=== PATIENT | male | born 1945 | race Caucasian/White ===

== ENCOUNTER → 2020-08-26 03:27 | Outpatient (CLI) | payer MEDICARE, OTHER, SELFPAY ==
[2020-08-26 19:50] LABS: SARS-CoV-2 RNA PCR Negative
== END ==
PROVIDERS: PCP Internal Medicine; Visit Provider Internal Medicine Gastroenterology
DX: Z01.812 Encounter for preprocedural laboratory examination (principal); Z20.822 Contact with and (suspected) exposure to COVID-19
CPT/HCPCS: C9803; U0003; U0005

== ENCOUNTER 2020-08-29 01:26 | Day surgery (SDC) | payer MEDICARE, OTHER, SELFPAY ==
[2020-08-18 09:55] VITALS: BMI 31.1
[2020-08-29 07:47] VITALS: BP 134/72; PULSE 58; RESP 18; TEMP 36.4; O2SAT 96; BMI 30.7
[2020-08-29] MEDS: LACTATED RINGERS 1,000 ML 150 ML IV CONT (08:01)
--- NOTE | 2020-08-29 08:01 | WPDANESEPPF ---
Anes - Initial Pre Proc Eval Procedure: Operation Date: 08/29/20 09:00 Proposed Procedures p Screening Colonoscopy - Van Pina MD Date/Time: 08/29/20 08:01 Surgeon: Van Pina MD Pre Op Diagnosis: hx of colon polyps Patient Data Age: 75 Gender: M Height: 1.7 m Weight: 88.8 kg Allergies Allergy/AdvReac Type Severity Reaction Status Date / Time Penicillins Allergy Unknown hives Verified 08/29/20 07:47 Home Medications Medication Instructions Recorded Confirmed Type sodium,potassium,mag sulfates 17.5 See Rx Instructions PO .COMPLEX 08/17/20 08/18/20 Rx gram-3.13 gram-1.6 gram oral soln #354 ml amlodipine 10 mg PO DAILY 08/18/20 08/18/20 History atorvastatin 40 mg PO DAILY 08/18/20 08/18/20 History lisinopril 20 mg PO DAILY 08/18/20 08/18/20 History metoprolol succinate 50 mg PO DAILY 08/18/20 08/18/20 History Patient hx anesthesia problems: none Family hx anesthesia problems: none [facility] Past Medical History Medical History (Updated 08/29/20 @ 08:02 by He Mckeon DO) GERD (gastroesophageal reflux disease) Hyperlipidemia Hypertension Surgical History Surgical History (Updated 08/29/20 @ 08:02 by He Mckeon DO) Hx of CABG 2009 Family History Family History (Updated 01/10/16 @ 11:16 by DOCTOR UNKNOWN) Mother Family history of cardiovascular disease Other Hypertension Social History Social History Smoking status: Never smoker Alcohol intake: current Substance use: never Substance use type: does not use Living arrangements: with family Spiritual care concerns: No Anes - Eval Final PreProcedure Day of Procedure 08/29/20 08:01 Patient weight: obese Heart: regular rate and rhythm Lungs: clear to auscultation and normal air movement Airway: Mallampati scale class III Neurological: alert and oriented Last oral intake: >/= 8 hours ASA classification: III Emergent: no Anesthetic plan: proceed Anesthesia type and monitoring: general GIVS and standard monitoring Informed Consent: The patient's anesthetic plan and its attendant risks and benefits were discussed with the patient/family/POA. Questions were solicited and answers provided to the satisfaction of the patient/family/POA.
--- NOTE | 2020-08-29 08:30 | WPDGICN ---
Assessment and Plan Assessment and plan (1) History of colon polyps: Code(s): Z86.010 - Personal history of colonic polyps Status: Acute Assessment and Plan: Patient has a history of adenomatous colon polyp for this reason presents today for screening colonoscopy. Follow-up at 5 years intervals has been advised. GI Consult Note Consult date/time: 08/29/20 08:30 HPI: Kalen Clancy is a 75 year old male Presents for screening colonoscopy. Patient has a history of adenomatous colon polyp removed from the colon 2013. Patient denies abdominal pain. Patient has had no bleeding. He has become somewhat forgetful and his comes with him and answers questions to remind. Patient denies abdominal pain has had no bleeding. Family history noncontributory. Review of Systems Review of Systems: All systems reviewed & are unremarkable except as noted in HPI and below PMFSH Past Medical History Medical History (Updated 08/29/20 @ 08:31 by Van Pina MD) GERD (gastroesophageal reflux disease) Hyperlipidemia Hypertension Surgical History Surgical History (Updated 08/29/20 @ 08:02 by He Mckeon DO) Hx of CABG 2008 Family History Family History (Updated 01/10/16 @ 11:16 by DOCTOR UNKNOWN) Mother Family history of cardiovascular disease Other Hypertension Social History Social History Smoking status: Never smoker Alcohol intake: current Substance use: never Substance use type: does not use Living arrangements: with family Spiritual care concerns: No Meds Home Medications and Allergies Home Medications Medication Instructions Recorded Confirmed Type sodium,potassium,mag sulfates 17.5 See Rx Instructions PO .COMPLEX 08/17/20 08/18/20 Rx gram-3.13 gram-1.6 gram oral soln #354 ml amlodipine 10 mg PO DAILY 08/18/20 08/18/20 History atorvastatin 40 mg PO DAILY 08/18/20 08/18/20 History lisinopril 20 mg PO DAILY 08/18/20 08/18/20 History metoprolol succinate 50 mg PO DAILY 08/18/20 08/18/20 History Allergies Allergy/AdvReac Type Severity Reaction Status Date / Time Penicillins Allergy Unknown hives Verified 08/29/20 07:47 Vital Signs Vital Signs - 24 hr 08/29/20 07:47 Temperature 97.6 F Pulse Rate 58 L Respiratory Rate 18 Blood Pressure 134/72 Pulse Oximetry 96 Exam Narrative: Exam Narrative: Physical exam reveals patient be alert. Vital signs stable. HEENT exam is unremarkable. Patient is anicteric. Lungs are clear to auscultation and percussion. Heart is without murmur or extra sounds. Abdominal exam bowel sounds are present soft nontender with no organomegaly. Digital external rectal exam normal.
[2020-08-29] MEDS: SIMETHICONE ORAL SUSPENSION 20 MG/0.3 ML 30 ML BOTTLE 0.6 ML IRRIGATION (09:04)
[2020-08-29 09:17] VITALS: BP 114/54; PULSE 50; RESP 16; O2SAT 98
[2020-08-29 09:27] VITALS: BP 115/53; PULSE 48; RESP 18; O2SAT 99
[2020-08-29 09:37] VITALS: BP 123/67; PULSE 52; RESP 20; O2SAT 100
== END 2020-08-29 09:55 | disposition home or self-care (01) ==
PROVIDERS: PCP Internal Medicine; Visit Provider Internal Medicine Gastroenterology
PROC: 0DJD8ZZ Inspection of Lower Intestinal Tract, Via Natural or Artificial Opening Endoscopic (ICD-10-PCS; CPT 45378; principal; 2020-08-29 09:00)
DX: Z12.11 Encounter for screening for malignant neoplasm of colon (principal); Z86.010 Personal history of colon polyps; K64.8 Other hemorrhoids; K63.5 Polyp of colon; D12.8 Benign neoplasm of rectum; D12.2 Benign neoplasm of ascending colon; K21.9 Gastro-esophageal reflux disease without esophagitis; I10 Essential (primary) hypertension; E78.5 Hyperlipidemia, unspecified; E66.9 Obesity, unspecified; Z68.30 Body mass index [BMI] 30.0-30.9, adult; Z95.1 Presence of aortocoronary bypass graft
CPT/HCPCS: 45385; 88305; J2704; J7120

== ENCOUNTER 2023-04-03 14:40 | Outpatient (CLI) | payer MEDICARE, SELFPAY ==
--- NOTE | ~2023-04-03 | XR_ITS ---
EXAMINATION: XR knee LT min 4V DATE: 04/03/2023 14:53 INDICATION: Left knee pain and swelling. TECHNIQUE: 4 views of left knee including standing views were obtained. COMPARISON: None. FINDINGS: Bone alignment is normal. No fracture. There is moderate osteoarthritis of medial compartme nt and mild osteoarthritis of lateral and patellofemoral compartments. There is a moderate-sized knee joint effusion. There is superficial infrapatellar soft tissue swelling. IMPRESSION: 1. Moderate left knee osteoarthritis. 2. Moderate-sized left knee joint effusion. Reviewed, dictated and finalized at location E. RAIL OPERATOR
== END 2023-04-03 14:41 | disposition home or self-care (01) ==
PROVIDERS: PCP Nurse Practitioner Adult Health; Visit Provider Nurse Practitioner Adult Health
DX: Z78.9 Other specified health status (principal); M17.12 Unilateral primary osteoarthritis, left knee; M25.462 Effusion, left knee
CPT/HCPCS: 73564

== ENCOUNTER 2023-05-29 12:58 | Outpatient (CLI) | payer MEDICARE, SELFPAY ==
--- NOTE | 2023-05-29 13:10 | ECG_ITS ---
Measurements Intervals [place] Rate: 60 P: 14 WA: 161 QRS: -34 QRSD: 117 T: 0 QT: 436 QTc: 436 Interpretive Statements SINUS RHYTHM LEFT AXIS DEVIATION INTRAVENTRICULAR CONDUCTION DELAY LEFT VENTRICULAR HYPERTROPHY AND ST-T CHANGE POOR R WAVE PROGRESSION, ANTERIOR LEADS BORDERLINE T WAVE ABNORMALITY- INFERIOR LEADS BASELINE ARTIFACT- I, II, AVR BORDERLINE ECG NO PREVIOUS ECG AVAILABLE FOR COMPARISON Electronically Signed On 05-29-2023 13:50:43 CDT by Jared Pride D.O.
== END 2023-05-29 12:59 | disposition home or self-care (01) ==
LOC: ANHSURGERY 13:05
PROVIDERS: PCP Nurse Practitioner Adult Health; Visit Provider Urology
DX: I10 Essential (primary) hypertension (principal); Z01.818 Encounter for other preprocedural examination
CPT/HCPCS: 93005

== ENCOUNTER 2023-06-04 01:13 | Day surgery (SDC) | payer MEDICARE, SELFPAY ==
--- NOTE | 2023-05-27 09:34 | PC.NURSE ---
Report to the Outpatient Waiting Room, entrance under the green pavilion located off [facility], at time _0630 on date _06/04/23 . Planned Procedure Time: ___829 . Time changes happen often and if your time is changed the preop area will call you the afternoon before. - You and your visitor will be asked to self-screen and do not enter if you have any COVID symptoms. - A mask is optional within the hospital at this time. Patients may have clear liquids (water, carbonated beverages, clear teas, apple juice) until 3 hours prior to surgery ( 5:30 am)with a maximum of 20 ounces. - No food from midnight until time of surgery - Infants may have breast milk until 4 hours before surgery, formula 6 hours prior to surgery. - Children will be allowed to drink immediately following surgery. If applicable, please bring a bottle or sippy cup to assist with drinking. Juice, water, soda, and popsicles are readily available. For infants on formula, please bring formula the day of surgery. Pacifiers are allowed. Take the following medications with a SIP of water the morning of surgery: _AMLODIPINE , METOPROLOL DO NOT STOP ANY OF YOUR OTHER PRESCRIPTION MEDICATIONS PRIOR TO SURGERY ?EXCEPT THE FOLLOWING Medications to discontinue per physician ___PT STATES HOLD ASPIRIN 7 DAYS PRE OP PER DR HURTADO LAST DOSE 05/27/23. HOLD ALL VITAMINS AND SUPPLEMENTS 3 DAYS PRE OP.LAST DOSE 05/31/23 Please no make-up, nail latvian, hairspray, perfume, deodorant, or body powder the day of surgery. No jewelry (including any body piercings) or valuables the day of surgery, leave them at home. Please take a shower or bath the night before, or the morning of, surgery with an antibacterial soap. Wear comfortable, loose fitting clothing. Children are encouraged to wear pajamas. - Jewelry must be removed prior to entering the operating room. Rings and piercings that are not removed may be cut off. - The hospital will not accept responsibility for valuables. - Please leave all valuables, including medications, at home the day of surgery. If you are going home after surgery, a licensed front end driver must drive you home. - NO public transportation without another adult if you receive anesthesia. - We recommend that an adult stay with you for 24 hours following discharge. - We also recommend that you do not drive, make important decision, drink alcoholic beverages, or take any drugs that were not prescribed by your health care provider for at least 24 hours after your discharge time. Follow any additional instructions given to you from your surgeon. If you or anyone in your household have experienced Covid symptoms in the past week, please notify your surgeon or the nurse liaison at the phone number below for possible testing. Telephone instructions given to ____PATIENT and asked if any additional questions and then verbalized understanding. Patient advised to call surgeon office or pre surgery nurse liaison [phone] if any additional questions.
[2023-05-27 09:47] VITALS: BMI 29.9
[2023-06-04] VITALS (9 sets, daily range): BP systolic 132–169; BP diastolic 60–91; PULSE 49–60; RESP 12–24; TEMP 36.1–36.7; O2SAT 97–99; BMI 30.4
[2023-06-04] MEDS: LACTATED RINGERS 1,000 ML 30 ML IV CONT (07:30)
--- NOTE | 2023-06-04 07:35 | WPDHPUPDATE1 ---
History and Physical Update Update Date/Time: 06/04/23 07:35 History and Physical has been reviewed, including an updated exam of the patient. There are NO changes in the patient's condition. Risks, benefits, and alternatives have been discussed and questions answered. Patient agrees to proceed with procedure.
--- NOTE | 2023-06-04 08:21 | WPDANESEPPF ---
Anes - Initial Pre Proc Eval Procedure: Operation Date: 06/04/23 08:30 Proposed Procedures p Circumcision - Mickey Borges MD Date/Time: 06/04/23 08:21 Surgeon: Mickey Borges MD Pre Op Diagnosis: Phimosis Patient Data Age: 78 Gender: M Height: 1.7 m Weight: 86.65 kg Allergies Allergy/AdvReac Type Severity Reaction Status Date / Time Sulfa (Sulfonamide Allergy Severe Itching Verified 05/27/23 09:18 Antibiotics) Penicillins Allergy Unknown hives Verified 05/27/23 09:18 Home Medications Medication Instructions Recorded Confirmed Type amlodipine 10 mg tablet 10 mg PO DAILY 08/18/20 05/27/23 History atorvastatin 40 mg tablet 40 mg PO EVERY OTHER DAY 08/18/20 05/27/23 History lisinopril 20 mg tablet 20 mg PO DAILY 08/18/20 05/27/23 History metoprolol succinate 50 mg 50 mg PO DAILY 08/18/20 05/27/23 History tablet,extended release 24 hr antiarthritic combination no.2 900 900 mg PO DAILY 04/18/23 05/27/23 History mg tablet (glucosamine-chondroitin) aspirin 81 mg tablet,delayed 81 mg PO DAILY 04/18/23 05/27/23 History release (Adult Low Dose Aspirin) krill oil 500 mg capsule 500 mg PO DAILY 04/18/23 05/27/23 History red yeast rice 600 mg capsule 600 mg PO EVERY OTHER DAY 04/18/23 05/27/23 History turmeric root extract 500 mg 500 mg PO DAILY 04/18/23 05/27/23 History capsule coQ10 (ubiquinol) 100 mg capsule 100 mg PO DAILY 05/27/23 05/27/23 History cyanocobalamin (vitamin B-12) 1,000 mcg PO DAILY 05/27/23 05/27/23 History 1,000 mcg tablet fluconazole 150 mg tablet 150 mg PO DAILY #1 tablet 05/27/23 Rx omeprazole magnesium 20 mg 10 mg PO DAILY 05/27/23 05/27/23 History tablet,delayed release (Prilosec OTC) Patient hx anesthesia problems: none Family hx anesthesia problems: none Results Review: All pre-operative results and documents have been reviewed as part of the pre-operative evaluation. PMFSH Past Medical History Medical History GERD (gastroesophageal reflux disease) Hyperlipidemia Hypertension Surgical History Surgical History History of carpal tunnel release of both wrists History of foot surgery Hx of CABG 2009 Family History Family History Mother Family history of cardiovascular disease Other Hypertension Malignant neoplasm of prostate Social History Social History Smoking status: Never smoker Alcohol intake: current Alcohol use details: rarely Substance use: never Substance use type: does not use Do You Feel Safe in your Home?: Yes Lack of Transportation: No Lack of Food: Never True Current Housing: Decline to Answer Concerned About Future Housing: Decline to Answer Difficulty Paying Gas/Electric Bills: No Difficulty Paying for Meds: No Currently Unemployed: YES Education: Trade/Vocational Certificate Difficulty w/ Childcare or Family Care: No Living arrangements: with family Occupation/Education: occupation Additional occupation/education comments: [employer] Gender identity (if verbalized by the patient): Male Spiritual care concerns: No Anes - Eval Final PreProcedure Day of Procedure 06/04/23 08:21 Patient weight: normal Heart: regular rate and rhythm Lungs: clear to auscultation Airway: Mallampati scale class II Neurological: alert and oriented Last oral intake: >/= 8 hours ASA classification: III Emergent: no Anesthetic plan: proceed Anesthesia type and monitoring: general LMA and standard monitoring Results Review: All pre-operative results and documents have been reviewed as part of the pre-operative evaluation. Informed Consent: The patient's anesthetic plan and its attendant risks and benefits were discussed w
[2023-06-04] MEDS: ceFAZolin 2 GM/D5W 50 ML 2 GM/50 ML BAG IVPB (08:55)
[2023-06-04] MEDS: BUPivacaine HCL 0.5% 10 ML AMP 20 ML INFILTRATE (09:00)
--- NOTE | 2023-06-04 09:25 | W.PM.PROC2 ---
Procedure Note - Detailed Date of Procedure 06/04/23 Pre-op Diagnosis Phimosis Post-op Diagnosis Same Procedure Performed circumcision Surgeon Mickey Borges MD Anesthesia General Description of Procedure The patient is brought to the operative suite areas prepped and draped in a routine sterile fashion while in a supine position. The lines of circumcision are outlined using a sterile marking pen. 2 circumferential circumcising incisions were made and carried down to Colle's fascia. The penile foreskin is circumferentially excised. Hemostasis is obtained with electric cautery. The edges of the penile skin reapproximated using a combination of running and interrupted 3-0 chromic. A penile block is administered at the base of the penis with 0.25% bupivacaine. The patient was taken to the recovery room in good condition. EBL was approximately 10cc. Drains No Packing No Pathology Yes Complications No immediate complications Condition Stable
== END 2023-06-04 11:08 | disposition home or self-care (01) ==
PROVIDERS: PCP Nurse Practitioner Adult Health; Visit Provider Urology
PROC: (CPT 54161; principal; 2023-06-04 08:30)
DX: N47.1 Phimosis (principal); I10 Essential (primary) hypertension; E78.5 Hyperlipidemia, unspecified; K21.9 Gastro-esophageal reflux disease without esophagitis; Z79.82 Long term (current) use of aspirin; Z95.1 Presence of aortocoronary bypass graft
CPT/HCPCS: 54161; 88304; 93005; A9270; J0690; J1100; J2405; J2704; J3010; J7120

== ENCOUNTER 2025-01-25 08:45 | Emergency (ER) | payer MEDICARE, SELFPAY ==
--- NOTE | ~2025-01-25 | XR_ITS ---
PROCEDURE(S): X-ray 2 views left humerus INDICATION(S): Injury and pain COMPARISON(S): None. TECHNIQUE: 2 radiographic images were submitted for interpretation. FINDINGS: Bones: There are no fractures seen. There are no destructive lesions or other lesions identified. Joints: There are no dislocations identified. There is no evidence of erosive arthropathy. There is mild degenerative change of the glenohumeral joint. There is at least moderate degenerative change of the AC joint with an ossific density just superior to it. IMPRESSION: No acute abnormalities are seen. Reviewed, dictated and finalized at location A. ING RINK MANAGER
--- NOTE | ~2025-01-25 | XR_ITS ---
Examination: XR shoulder LT min 2V Clinical History: fall x yesterday Comparison: None Technique: 4 views left shoulder Findings/impression: 1. No fracture or dislocation left shoulder. 2. Mild degenerative changes glenohumeral joint. 3. Moderate degenerative changes AC joint. Reviewed, dictated and finalized at location R. FIC WORKFORCE REPRESENTATIVE
[2025-01-25 08:52] VITALS: BP 178/91; PULSE 58; RESP 20; TEMP 37.1; O2SAT 100
--- OUTSIDE RECORDS SUMMARY | 2025-01-25 09:00 | XMS_ITS | Clinical Summary ---
Author Organization [facility] Address [address] [place] [address] Care Team Providers Care Manager Gallery Name Role Phone Gavin Murray MD Primary Care Provider [phone] Allergies Active Allergy Reactions Criticality Noted Date Comments Penicillins Hives Medium 04/27/2021 Sulfadiazine Rash Medium 04/21/2021 Medications metoprolol XL (TOPROL-XL) 50 mg 24 hr tabletIndication s:coronary artery disease,hyperten yu Take 50 mg by mouth every morning 8 Active amLODIPine (NORVASC) 5 mg tabletIndication s:hypertension Take 5 mg by mouth every morning 8 Active lisinopril (PRINIVIL,ZESTRI L) 20 mg tabletIndication s:hypertension Take 20 mg by mouth every morning 8 Active atorvastatin (LIPITOR) 80 mg tabletIndication s:coronary artery disease Take 40 mg by mouth every morning Active aspirin 81 mg tabletIndication s:CABG Take 81 mg by mouth every morning Active glucosamine-matheus droitin 250-200 mg tabletIndication s:supplement Take 1 tablet by mouth every morning Active FLAXSEED ORALIndications: supplement Take 1 tablet by mouth every morning 3 Active coenzyme Q10 100 mg capsuleIndicatio ns:supplement Take 1 capsule by mouth every morning 5 Active red yeast rice 600 mg capsuleIndicatio ns:supplement takes with Cholesterol Medication Take 1 capsule by mouth every morning 5 Active meloxicam (MOBIC) 15 mg tablet 1 Active turmeric root extract 500 mg capsuleIndicatio ns:supplement Take 1 tablet by mouth every morning Active cyanocobalamin (Vitamin B-12) 500 mcg tabletIndication s:Prevention of Vitamin B12 Deficiency,suppl ement Take 500 mcg by mouth daily as needed Active HYDROcodone-acet aminophen ([place]) 5-325 mg per tabletIndication s:Pain Take 1 tablet by mouth every 6 (six) hours as needed for pain 12 tablet 2 Active Additional Information Patient not taking.Reported on 05/19/2021 Active Problems Problem Noted Date Diagnosed Date Left carpal tunnel syndrome 04/18/2021 Overview (04/18/2021): Added automatically from request for surgery [id number] Surgical History Surgery Date Site/Laterality Comments ANKLE FRACTURE SURGERY 03/18/1992 - 03/17/1993 Left reports hardware removed CARPAL TUNNEL RELEASE 03/18/1969 - 03/17/1970 Right INCISION AND DRAINAGE 03/18/2019 - 03/17/2020 Left splinter in hand removed CORONARY ARTERY BYPASS GRAFT 03/18/2008 - 03/17/2009 Medical History Medical History Date Comments Arthritis Hypertension well controlled Peripheral neuropathy HLD (hyperlipidemia) on statin CAD (coronary artery disease) s/ p CABG 2008. Denies CP/SOB. Follows with cardiology yearly Family History Medical History Relation Name Comments Arthritis Father Gout Father Arthritis Mother Heart disease Mother Hypertension Mother Anesthesia problems Neg Hx Relation Name Status Comments Father Mother Social History Tobacco Use Types Packs/Day Years Used Date Smoking Tobacco: Never Smokeless Tobacco: Never AUDIT-C Answer Date Recorded Q1: How often do you have a drink containing alc ohol? Never 04/24/2021 Average Number of Drinks Not on file 022 Q3: How often do you have si x or more drinks on one occasion? 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 Gender Identity Not on file Sexual Orientation Not on file Last Filed Vital Signs Vital Sign Reading Time Taken Comments Blood Pressure 131/66 05/02/2021 10:25 AM HOUSECLEANER Pulse 49 05/02/2021 10:35 AM HOUSECLEANER Temperature 36.3 C (97.3 F) 05/02/2021 10:06 AM HOUSECLEANER Respiratory Rate 17 05/02/2021 10:35 AM HOUSECLEANER Oxygen Saturation 94% 05/02/2021 10:35 AM HOUSECLEANER Inhaled Oxygen Concentration - - Weight 90 kg (198 lb 8 oz) 05/02/2021 7:34 AM CS T Height 170.2 cm (5' 7) 05/02/2021 7:34 AM HOUSECLEANER Body Mass Index 31.09 05/02/2021 7:34 AM HOUSECLEANER Plan of Treatment Not on file Insurance [employer] [facility] REF COMMERCIAL GENERIC [facility] AEST. [facility] MCR GOLD REF COMMERCIAL GENERIC Care Teams Manager Gallery Relationship Specialty Start Date End Date Gavin Murray MD [address] [place] [id number] PCP - General Internal Medicine 08/07/17
--- NOTE | 2025-01-25 09:53 | ED.GENADULT ---
HPI - General Adult General Chief complaint: Extremity Injury, Upper Stated complaint: fell yesterday. Hit head L arm pain Time Seen by Provider: 01/25/25 08:59 History of Present Illness HPI narrative: 79-year-old male presenting with complaints of left shoulder pain after an incident involving a 40 lb bucket he attempted to toss into a pond but then was pulled in by the weight. Patient endorses he hit his chin and left shoulder. Denies headache, nausea vomiting, chest pain or shortness of breath, vision changes, dizziness. Patient endorses the pain woke him up at night and he tried to take naproxen with no relief of symptoms. Related Data Home Medications ?Medication ?Instructions ?Recorded ?Confirmed ?Last Taken ?Type amlodipine 10 mg tablet 10 mg PO DAILY 08/18/20 06/04/23 06/04/23 05:30 History atorvastatin 40 mg tablet 40 mg PO EVERY OTHER DAY 08/18/20 05/27/23 08/29/20 History antiarthritic combination no.2 900 900 mg PO DAILY 04/18/23 06/04/23 05/31/23 History mg tablet (glucosamine-chondroitin) aspirin 81 mg tablet,delayed 81 mg PO DAILY 04/18/23 06/04/23 05/27/23 History release (Adult Low Dose Aspirin) krill oil 500 mg capsule 500 mg PO DAILY 04/18/23 06/04/23 05/31/23 History red yeast rice 600 mg capsule 600 mg PO EVERY OTHER DAY 04/18/23 06/04/23 05/31/23 History turmeric root extract 500 mg 500 mg PO DAILY 04/18/23 06/04/23 05/31/23 History capsule coQ10 (ubiquinol) 100 mg capsule 100 mg PO DAILY 05/27/23 06/04/23 05/31/23 History cyanocobalamin (vitamin B-12) 1,000 mcg PO DAILY 05/27/23 06/04/23 05/31/23 History 1,000 mcg tablet omeprazole magnesium 20 mg 10 mg PO DAILY 05/27/23 05/27/23 Unknown History tablet,delayed release (Prilosec OTC) metoprolol succinate 50 mg 25 mg PO DAILY 12/02/23 Unknown History tablet,extended release 24 hr Allergies Allergy/AdvReac Type Severity Reaction Status Date / Time Sulfa (Sulfonamide Allergy Severe Itching Verified 01/25/25 08:57 Antibiotics) Penicillins Allergy Unknown hives Verified 01/25/25 08:57 Review of Systems Review of Systems: All systems reviewed & are unremarkable except as noted in HPI and below PMFSH Past Medical History Medical History GERD (gastroesophageal reflux disease) Hyperlipidemia Hypertension Surgical History Surgical History History of foot surgery History of carpal tunnel release of both wrists Hx of CABG 2009 Family History Family History Mother Family history of cardiovascular disease Other Hypertension Malignant neoplasm of prostate Social History Social History Alcohol intake: current Alcohol use details: rarely Substance use: never Substance use type: does not use Do You Feel Safe in your Home?: Yes Lack of Transportation: No Lack of Food: Never True Current Housing: Decline to Answer Concerned About Future Housing: Decline to Answer Difficulty Paying Gas/Electric Bills: No Difficulty Paying for Meds: No Currently Unemployed: YES Education: Trade/Vocational Certificate Difficulty w/ Childcare or Family Care: No Living arrangements: with family Occupation/Education: occupation Additional occupation/education comments: [employer] Gender identity (if verbalized by the patient): Male Spiritual care concerns: No Exam Narrative: GENERAL: Well-appearing, well-nourished, and in no acute distress. HEAD: Normocephalic, atraumatic. EYES: PERRLA and EOMI. ENT: Nares clear, no rhinorrhea or epistaxis. Mucous membranes moist. Oropharynx without tonsillar hypertrophy exudate or other lesions. Bilateral TMs pearly verma non-bulging NECK: Supple. No adenopathy or masses. No carotid bruits or JVD CHEST: Clear to auscultation. No respiratory distress. No wheezes rales or rhonchi HEART: Regular rate and rhythm. No murmur heard. Normal peripheral pulses. ABDOMEN: Soft, nontender, nondistended, normal active bowel sounds. EXTREMITIES: Left shoulder ROM limited due to pain. 5/5 strength. Good pulses. No skin ecchymosis. No edema. SKIN: Warm, dry, no rash. NEURO: No focal deficits. Alert and oriented x3. PSYCH: Normal mood and affect Course Vital Signs Vital signs: Vital Signs Temperature 98.7 F 01/25/25 08:52 Pulse Rate 58 L 01/25/25 08:52 Respiratory Rate 20 01/25/25 08:52 Blood Pressure 178/91 H 01/25/25 08:52 Pulse Oximetry 100 01/25/25 08:52 Oxygen Delivery Room Air 01/25/25 08:52 Temperature 98.7 F 01/25/25 08:52 Pulse Rate 58 L 01/25/25 08:52 Respiratory Rate 20 01/25/25 08:52 Blood Pressure 178/91 H 01/25/25 08:52 Pulse Oximetry 100 01/25/25 08:52 Oxygen Delivery Room Air 01/25/25 08:52 Medical Decision Making MDM Narrative Medical decision making narrative: 79-year-old male presenting with complaints of left shoulder pain after an incident involving a 40 lb bucket he attempted to toss into a pond but then was pulled in by the weight. Patient endorses he hit his chin and left shoulder. Denies headache, nausea vomiting, chest pain or shortness of breath, vision changes, dizziness. Patient endorses the pain woke him up at night and he tried to take naproxen with mild relief of symptoms. Upon my initial exam, patient is sitting comfortably. He reports proximal humerus pain as well as shoulder pain. X-ray humerus and shoulder demonstrated no acute fractures or misalignment. The patient states he does not want anything for pain control. Discussed discharge home with naproxen prescription and close follow-up with PCP. Medical Records Medical records reviewed: Yes I reviewed the external patient's medical records. Vital Signs Vital Signs: Vital Signs Temperature 98.7 F 01/25/25 08:52 Pulse Rate 58 L 01/25/25 08:52 Respiratory Rate 20 01/25/25 08:52 Blood Pressure 178/91 H 01/25/25 08:52 Pulse Oximetry 100 01/25/25 08:52 Oxygen Delivery Room Air 01/25/25 08:52 Temperature 98.7 F 01/25/25 08:52 Pulse Rate 58 L 01/25/25 08:52 Respiratory Rate 20 01/25/25 08:52 Blood Pressure 178/91 H 01/25/25 08:52 Pulse Oximetry 100 01/25/25 08:52 Oxygen Delivery Room Air 01/25/25 08:52 Lab Data Lab results reviewed: Yes I reviewed the patient's lab results. Imaging Data Attestation: I personally reviewed and interpreted this imaging study as follows: Radiologist's impression: ITS Impressions Humerus X-Ray 01/25/25 09:20 IMPRESSION: No acute abnormalities are seen. Shoulder XR: Findings/impression: 1. No fracture or dislocation left shoulder. 2. Mild degenerative changes glenohumeral joint. 3. Moderate degenerative changes AC joint. Discharge Plan Discharge Clinical Impression: Acute shoulder pain due to trauma Patient Disposition: Home Condition: Stable Instructions: Shoulder Pain (ED) Additional Instructions: Return to the emergency department if you experience fever, chest pain, shortness of breath, abdominal pain with nausea and vomiting, weakness, numbness/tingling, or any other symptoms that are concerning to you. Take medications as prescribed. Follow up with primary care doctor Patient Language: Peruvian Prescriptions: New naproxen 500 mg tablet 500 mg PO BID PRN (Reason: pain) Qty: 10 0RF No Action red yeast rice 600 mg capsule 600 mg PO EVERY OTHER DAY Rx Instructions: give with meal/snack turmeric root extract 500 mg capsule 500 mg PO DAILY aspirin [Adult Low Dose Aspirin] 81 mg tablet,delayed release (DR/EC) 81 mg PO DAILY glucosamine-chondroitin 900 mg tablet 900 mg PO DAILY krill oil 500 mg capsule 500 mg PO DAILY omeprazole magnesium [Prilosec OTC] 20 mg Tablet,Delayed Release (Dr/Ec) 10 mg PO DAILY cyanocobalamin (vitamin B-12) 1,000 mcg Tablet 1,000 mcg PO DAILY coQ10 (ubiquinol) 100 mg Capsule 100 mg PO DAILY atorvastatin 40 mg tablet 40 mg PO EVERY OTHER DAY amlodipine 10 mg tablet 10 mg PO DAILY metoprolol succinate 50 mg tablet extended release 24 hr 25 mg PO DAILY fluconazole 150 mg tablet 150 mg PO DAILY Qty: 1 0RF doxepin 25 mg capsule 25 mg PO QHS PRN (Reason: insom) Qty: 30 0RF lisinopril 40 mg tablet 40 mg PO DAILY Qty: 90 1RF Follow-up/Referrals: Cameron Qureshi MD [Primary Care Provider, Family Practice]
--- OUTSIDE RECORDS SUMMARY | 2025-01-25 10:00 | XMS_ITS | Clinical Summary ---
Author Organization [facility] Address [address] [place] [address] Care Team Providers Care Check Scaler Name Role Phone Gavin Murray MD Primary Care Provider [phone] Allergies Active Allergy Reactions Criticality Noted Date [...] mouth daily as needed Active HYDROcodone-acet aminophen ([place]) 5-325 mg per tabletIndication s:Pain Take 1 tablet by mouth every 6 (six) hours as needed for pain 12 tablet 2 Active Additional Information Patient not taking.Reported on 05/19/2021 Active Problems Problem Noted Date Diagnosed Date Left carpal tunnel syndrome 04/18/2021 Overview (04/18/2021): Added automatically from request for surgery [id number] Surgical History Surgery Date Site/Laterality Comments ANKLE [...] on file Legal Sex Male 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 Gender Identity Not on file Sexual Orientation Not on file Last Filed Vital Signs Vital Sign Reading Time Taken Comments Blood Pressure 131/66 05/02/2021 10:25 AM DENTURE TECHNICIAN Pulse 49 05/02/2021 10:35 AM DENTURE TECHNICIAN Temperature 36.3 C (97.3 F) 05/02/2021 10:06 AM DENTURE TECHNICIAN Respiratory Rate 17 05/02/2021 10:35 AM DENTURE TECHNICIAN Oxygen Saturation 94% 05/02/2021 10:35 AM DENTURE TECHNICIAN Inhaled Oxygen Concentration - - Weight 90 kg (198 lb 8 oz) 05/02/2021 7:34 AM CS T Height 170.2 cm (5' 7) 05/02/2021 7:34 AM DENTURE TECHNICIAN Body Mass Index 31.09 05/02/2021 7:34 AM DENTURE TECHNICIAN Plan of Treatment Not on file Insurance [employer] [facility] REF COMMERCIAL GENERIC [facility] [employer] REF COMMERCIAL GENERIC Care Teams Check Scaler Relationship Specialty Start Date End Date Gavin Murray MD [address] [place] [id number] PCP - General Internal Medicine 08/07/17
== END 2025-01-25 11:15 | disposition home or self-care (01) ==
PROVIDERS: PCP Family Medicine
DX: M25.512 Pain in left shoulder (principal); X50.0XXA Overexertion from strenuous movement or load, initial encounter; K21.9 Gastro-esophageal reflux disease without esophagitis; E78.5 Hyperlipidemia, unspecified; I10 Essential (primary) hypertension
CPT/HCPCS: 73030; 73060; 99283